=== PATIENT | female | born 1940 | race Caucasian/White ===

== ENCOUNTER → 2017-01-28 | Outpatient (CLI) | payer MEDICARE, OTHER ==
[~2017-01-28] MED LIST: ACHYD1T PO; CALC-758 PO; DCS100C PO; EST30C PV; ESTR0.62 PO; IBP800T PO; [UNRECOGNIZED DRUG - OTHER] OD
--- NOTE | 2017-01-28 19:24 | Diagnostic Imaging Report ---
EXAMINATION: DEXA scan. INDICATION: Osteopenia. TECHNIQUE: Bone mineral density estimated based on dual energy radiography over the lumbar spine and femoral necks, was performed. FINDINGS: The lumbar spine T-score is -1.6. This is the 0.5% decreased density measurements compared to 01/17/2015. T score over the left femoral neck is -1.1 and on the right is -0.6. The measurements in the femur in average are 4% higher than measurements from 2015. IMPRESSION: Osteopenia. Dictated by: Dictated on workstation # [id number]
--- NOTE | 2017-01-29 10:39 | Diagnostic Imaging Report ---
Bilateral screening mammogram. The current study was also evaluated with a Computer Aided Detection (CAD) system. INDICATION: Screening. No current complaints stated on the questionnaire. COMPARISON: 01/24/2016. FINDINGS: The breasts are composed of heterogeneously dense parenchyma which may decrease mammographic sensitivity. There are bilateral breast calcifications seen minimally increased from the prior exam with no focal adverse development or heterogeneous cluster. Allowing for technique and positional differences, no suspicious change is seen. IMPRESSION: Dense breasts with no definite change. ACR BI-RADS Category 2: Benign findings. Result letter will be mailed to the patient. Note: At least 10% of breast cancer is not imaged by mammography. Dictated by: Dictated on workstation # [id number]
== END ==
LOC: RAD 10:21
PROVIDERS: ATTEND Internal Medicine
DX: Z13.820 Encounter for screening for osteoporosis (principal); M85.89 Other specified disorders of bone density and structure, multiple sites; Z12.31 Encounter for screening mammogram for malignant neoplasm of breast
CPT/HCPCS: 77067; 77080

== ENCOUNTER 2017-03-08 12:14 | Outpatient (CLI) | payer MEDICARE, OTHER ==
[~2017-03-08] VITALS: Ht 170.2 cm; Wt 57.6 kg
[2017-03-08] MEDS ORDERED: BUPIVACAINE 0.25% 30 ML (SENSORCAINE) VIAL ONE (12:20)
[2017-03-08] MEDS ORDERED: TRIAMCINOLONE ACET (KENALOG-40) 40 MG/ML 1 ML VIAL ONE (12:20)
[2017-03-08 12:27] VITALS: BP 133/59
[2017-03-08 12:59] VITALS: BP 138/76
--- NOTE | 2017-03-08 14:32 | Pain Medicine-Procedure ---
Procedure Pre-Op/Post-Op Diagnosis Diagnosis: disc disorder with radiculopathy, lumbar Indications for Operation Low back pain Attending Surgeon Tyler Procedure Date of Service: Mar 08, 2017 Procedure: Lumbar Epidural Steroid Injection at the L5-S1 level under Fluoroscopic Guidance Procedure: Patient was identified in the holding area. After risks, benefits, and alternatives were discussed with the patient, informed consent was obtained. Patient was brought to the fluoroscopy suite and placed prone on the procedure room table. A time out was performed. Vital signs were monitored throughout the procedure. The patients low back was prepped and draped in the usual sterile fashion. The patients skin was anesthetized using 2% Lidocaine. A Tuohy needle was inserted and advanced to the L5-S1 epidural space under fluoroscopic guidance using the loss of resistance technique and intermittent projection of fluoroscopy. There was no paresthesia with needle placement. The needle position was confirmed in both the AP and lateral view. After negative aspiration 2ml of contrast was injected under live fluoroscopy which showed good spread of the contrast in the epidural space at the appropriate level, there was no intravascular or subarachnoid spread. Again, after negative aspiration for heme or CSF, 2 ml of 0.25% Bupivicaine, 2ml of preservative free normal saline, and 80mg of Kenalog was injected. The needle was removed and a sterile bandage was placed and the patient was transferred to the recovery area in stable condition. After a brief period of observation, patient was discharged to home with no new neurological deficits and no apparent complications. Complications None SUSY RAMÍREZ MD Mar 08, 2017 2:32 pm
== END 2017-03-08 13:00 | disposition home or self-care (01) ==
LOC: CARD 12:14
PROVIDERS: ATTEND Pain Medicine Pain Medicine
DX: M51.16 Intervertebral disc disorders with radiculopathy, lumbar region (principal); M47.816 Spondylosis without myelopathy or radiculopathy, lumbar region; M53.3 Sacrococcygeal disorders, not elsewhere classified
CPT/HCPCS: 62323

== ENCOUNTER → 2017-03-29 | Outpatient (CLI) | payer MEDICARE, OTHER ==
[~2017-03-29] VITALS: Ht 170.2 cm; Wt 57.6 kg
[~2017-03-29] MED LIST changes: +DENOSUMAB 60 MG/1 ML (PROLIA) SQ NR
[2017-03-29 13:55] VITALS: BP 119/74
== END ==
LOC: SDC 13:27
PROVIDERS: ATTEND Internal Medicine
DX: M81.0 Age-related osteoporosis without current pathological fracture (principal)
CPT/HCPCS: 96372

== ENCOUNTER 2017-07-28 11:34 | Outpatient (RCR) | payer MEDICARE, OTHER ==
[~2017-07-28 11:34] MED LIST changes: -DENOSUMAB 60 MG/1 ML (PROLIA) SQ NR
== END 2017-07-28 13:19 | disposition home or self-care (01) ==
PROVIDERS: ATTEND Internal Medicine
DX: M41.9 Scoliosis, unspecified (principal); R10.84 Generalized abdominal pain

== ENCOUNTER → 2017-10-07 | Outpatient (CLI) | payer MEDICARE, OTHER ==
[~2017-10-07] VITALS: Ht 170.2 cm; Wt 57.6 kg
[~2017-10-07] MED LIST changes: +DENOSUMAB 60 MG/1 ML (PROLIA) SQ ONE
[2017-10-07 14:43] VITALS: BP 137/71
== END ==
LOC: SDC 14:16
PROVIDERS: ATTEND Internal Medicine
DX: M81.0 Age-related osteoporosis without current pathological fracture (principal)
CPT/HCPCS: 96372

== ENCOUNTER → 2017-10-28 | Outpatient (CLI) | payer MEDICARE, OTHER ==
[~2017-10-28] MED LIST changes: -DENOSUMAB 60 MG/1 ML (PROLIA) SQ ONE
--- NOTE | 2017-10-28 19:36 | Diagnostic Imaging Report ---
PROCEDURE: MRI lumbar spine. TECHNIQUE: Multiplanar, multisequence MRI of the lumbar spine was performed without contrast. INDICATION: Chronic low back pain. Left sciatic pain. FINDINGS: There is scoliosis in the lumbar spine convex to the left centered around L3/4 level with a compensatory curve convex to the right side centered around T12/L1 level. The vertebral body heights are preserved. There is disc desiccation at all disc levels. There is heterogeneous marrow signal without suspicious focal lesion seen. Mild endplate edema around L5/S1 is noted. The L4 vertebral body demonstrates a 1.2 cm nodule with T2 hyperintensity and part T1 hyperintensity likely related to hemangioma. There is no compression fracture. There is mild disc height loss at lower lumbar spine disc levels, particularly involving the right side of the L3/4 and L2/3 levels. The cauda equina and conus medullaris appear grossly unremarkable. T12/L1: There is a diffuse disc bulge, asymmetric to the left side. There is mild facet hypertrophy. No central canal or lateral recess stenosis. The foramina appear patent. L1/2: There is a diffuse disc bulge, asymmetric to the left. There is mild facet hypertrophy. No central canal, lateral recess, or foraminal stenosis. L2/3: There is a diffuse disc bulge and moderate facet hypertrophy. There is no central canal stenosis. The lateral recess demonstrates jmbf-tp-cyisomob narrowing on the right and no significant narrowing on the left. The foramina demonstrate no significant stenosis. L3/4: There is a diffuse disc bulge and cpoi-ab-utkbzilo facet hypertrophy. No central canal stenosis. There is mild right lateral recess stenosis. The left lateral recess is patent. The foramina demonstrate mild stenosis on the right and no significant stenosis on the left. L4/5: There is a diffuse disc bulge and fhtjfysb-kh-qjyvtt facet hypertrophy bilaterally. No central canal stenosis. There is arot-ig-srthkhab stenosis of the right lateral recess and mild stenosis of the left lateral recess. The foramina demonstrate bmxp-pv-rvbnduqi stenosis only on the right side. L5/S1: There is a minimal disc bulge and tccb-ot-gkuepnjw facet hypertrophy, worse on the left side. No central canal or lateral recess stenosis. No foraminal stenosis on the right. There is mild foraminal stenosis on the left. IMPRESSION: Degenerative disc and facet changes. Scoliosis. No high-grade spinal canal stenosis seen. Dictated by: Dictated on workstation # [id number]
== END ==
LOC: RAD 12:48
PROVIDERS: ATTEND Physical Medicine & Rehabilitation Sports Medicine
DX: M51.36 Other intervertebral disc degeneration, lumbar region (principal); M89.38 Hypertrophy of bone, other site; M41.9 Scoliosis, unspecified
CPT/HCPCS: 72148

== ENCOUNTER → 2018-01-19 | Outpatient (CLI) | payer MEDICARE, OTHER ==
--- NOTE | 2018-01-19 14:51 | Diagnostic Imaging Report ---
PROCEDURE: MRI left joint lower extremity without contrast. TECHNIQUE: Multiplanar, multisequence non contrast-enhanced MRI of the pelvis with small lvyhv-bo-vomg sequences of the left hip was accomplished. INDICATION: Left-sided hip and low back pain. COMPARISON: CT abdomen and pelvis from 12/26/2012. FINDINGS: No acute fracture or dislocation is seen in the pelvis. No significant joint effusion is seen in the bilateral hips or sacroiliac joints. There are mild degenerative changes in the bilateral hip joints. Moderate degenerative changes are seen in the lumbar spine. The bone marrow is heterogeneous, but no aggressive lesions are seen. A sclerotic focus is seen in the left femoral head, likely a bone island. No soft tissue masses or fluid collections are seen. No focal intramuscular edema is seen. Mild increased T2 signal is seen lateral to the greater trochanters bilaterally, right greater than left, which can be seen with asymptomatic individuals. The bilateral iliopsoas tendons are intact. No increased fluid is seen in the iliopsoas bursae. The hamstring tendons and gluteal tendons appear intact. Small saoge-lw-copu images of the left hip demonstrate mild nonspecific bone marrow edema at the anterior femoral neck. There is mild irregularity at the superior acetabular labrum, likely degenerative. No paralabral cysts are seen. No free fluid is seen in the pelvis. No pelvic masses or lymphadenopathy is seen. There is pelvic floor relaxation. IMPRESSION: 1. Mild degenerative changes in bilateral hips with no acute osseous or soft tissue abnormality seen. The images and report will be mailed to [facility] in [place], [place]. Dictated by: Dictated on workstation # [id number]
== END ==
LOC: RAD 12:52
PROVIDERS: ATTEND Physical Medicine & Rehabilitation Sports Medicine
DX: M16.0 Bilateral primary osteoarthritis of hip (principal); M54.5 Low back pain
CPT/HCPCS: 73721

== ENCOUNTER → 2018-02-14 | Outpatient (CLI) | payer MEDICARE, OTHER ==
--- NOTE | 2018-02-15 19:11 | Diagnostic Imaging Report ---
INDICATION: Routine screening. Comparison is made with prior exam from 01/28/2017 and 01/24/2016. The current study was also evaluated with a Computer Aided Detection (CAD) system. FINDINGS: Moderate parenchymal density and heterogeneity is noted bilaterally, limiting the sensitivity of mammography. There are benign calcifications bilaterally. No mass or malignant-appearing microcalcifications are seen. The axillae are unremarkable. IMPRESSION: No mammographic features suspicious for malignancy are identified. ACR BI-RADS Category 2: Benign findings. Result letter will be mailed to the patient. Note: At least 10% of breast cancer is not imaged by mammography. Dictated by: Dictated on workstation # [id number]
== END ==
LOC: RAD 15:11
PROVIDERS: ATTEND Internal Medicine
DX: Z12.31 Encounter for screening mammogram for malignant neoplasm of breast (principal)
CPT/HCPCS: 77067

== ENCOUNTER → 2018-04-28 | Outpatient (CLI) | payer MEDICARE ==
[~2018-04-28] VITALS: Ht 170.2 cm; Wt 57.6 kg
[~2018-04-28] MED LIST changes: +DENOSUMAB 60 MG/1 ML (PROLIA) SQ ONE
[2018-04-28 12:57] VITALS: BP 123/63
== END ==
LOC: SDC 12:47
PROVIDERS: ATTEND Internal Medicine
DX: M81.0 Age-related osteoporosis without current pathological fracture (principal)
CPT/HCPCS: 96372

== ENCOUNTER → 2018-10-31 | Outpatient (CLI) | payer MEDICARE ==
[~2018-10-31] VITALS: Ht 170.2 cm; Wt 57.6 kg
[~2018-10-31] MED LIST changes: -DENOSUMAB 60 MG/1 ML (PROLIA) SQ ONE; +DENOSUMAB 60 MG/1 ML (PROLIA) SQ SCH
[2018-10-31 13:10] VITALS: BP 128/67
== END | disposition home or self-care (01) ==
LOC: SDC 13:02
PROVIDERS: ATTEND Internal Medicine
DX: M81.0 Age-related osteoporosis without current pathological fracture (principal)
CPT/HCPCS: 96372

== ENCOUNTER → 2019-04-11 | Outpatient (CLI) | payer MEDICARE ==
[~2019-04-11] MED LIST changes: -DENOSUMAB 60 MG/1 ML (PROLIA) SQ SCH
--- NOTE | 2019-04-11 12:57 | Diagnostic Imaging Report ---
INDICATION: Postmenopausal screening COMPARISON: 01/28/2017 FINDINGS: AP Spine L1-L4: [BMD (g/cm2): 0.975] [T-Score: -1.9] [Z-Score: 0.1] [BMD Previous: 1.003] [BMD % Change: -2.8] LT Hip Neck: [BMD (g/cm2): 0.832] [T-Score: -1.5] [Z-Score: 0.7] LT Hip Total: [BMD (g/cm2):0.864] [T-Score:-1.1] [Z-Score: 0.9] [BMD Previous: 0.870] [BMD % Change: -0.7] RT Hip Neck: [BMD (g/cm2):0.883] [T-Score:-1.1] [Z-Score:1.1] RT Hip Total: [BMD (g/cm2):0.911] [T-score:-0.8] [Z-Score:1.3] [BMD Previous:0.934] [BMD % Change:-2.5] *Indicates significant change from prior examination based on 95% confidence level. World Health Organization criteria for BMD interpretation classify patients as Normal (T-score at or above -1.0), Osteopenic (T-score between -1.0 and -2.5) or Osteoporotic (T-score at or below -2.5). LIMITATIONS AND MODIFICATION: None. FRACTURE RISK (FRAX SCORE): The ten year probability of (%): Major Osteoporotic Fracture: [10.8] Hip Fracture: [2.5] IMPRESSION: 1. Osteopenia (Low bone mass). 2. No significant change in bone mineral density since prior examination. 3. See below National Osteoporosis Foundation guidelines on when to potentially initiate pharmacologic therapy. Based on the National Osteoporosis Foundation Guidelines, pharmacologic treatment should be initiated in any of the following, unless clinical conditions suggest otherwise: * Any patient with prior fragility fracture of the hip or vertebrae. A spine fracture indicates 5X risk for subsequent spine fracture and 2X risk for subsequent hip fracture. * Osteoporosis (T-score <-2.5). * Postmenopausal women and men age 50 and older with low bone mass/osteopenia (T-score between -1.0 and -2.5) by DXA and 10-year major osteoporotic fracture greater than 20% or a 10-year probability of hip fracture greater than 3%. These fracture risks are supplied above in the FRAX score, if applicable. * Clinician judgement and/or patient preferences may indicate treatment for people with 10-year fracture probabilities above or below these levels. Dictated by: Dictated on workstation # [id number]
--- NOTE | 2019-04-11 14:29 | Diagnostic Imaging Report ---
INDICATION: Routine screening. COMPARISON: 02/14/2018 and 01/28/2017. TECHNIQUE: 2D and 3D bilateral screening mammography was performed with CAD. FINDINGS: Both breasts are heterogeneously dense, limiting the sensitivity of mammography. Benign calcifications are scattered throughout both breasts. No dominant mass or malignant appearing microcalcifications are seen. The axillae are unremarkable. IMPRESSION: No mammographic features suspicious for malignancy are identified. ACR BI-RADS Category 2: Benign findings. Result letter will be mailed to the patient. Note: At least 10% of breast cancer is not imaged by mammography. Dictated by: Dictated on workstation # [id number]
== END ==
LOC: RAD 09:51
PROVIDERS: ATTEND Internal Medicine
DX: Z12.31 Encounter for screening mammogram for malignant neoplasm of breast (principal); Z13.820 Encounter for screening for osteoporosis; M85.89 Other specified disorders of bone density and structure, multiple sites; Z78.0 Asymptomatic menopausal state
CPT/HCPCS: 77067; 77080

== ENCOUNTER 2019-05-30 10:10 | Outpatient (CLI) | payer MEDICARE ==
[~2019-05-30] VITALS: Ht 170.2 cm; Wt 57.6 kg
[2019-05-30] MEDS ORDERED: DENOSUMAB 60 MG/1 ML (PROLIA) SQ NR (10:18)
[2019-05-30 10:40] VITALS: BP 140/81
== END 2019-05-30 10:40 | disposition home or self-care (01) ==
LOC: SDC 10:10
PROVIDERS: ATTEND Internal Medicine
DX: M81.0 Age-related osteoporosis without current pathological fracture (principal)
CPT/HCPCS: 96372

== ENCOUNTER 2019-10-06 10:47 | Outpatient (CLI) | payer MEDICARE ==
[~2019-10-06] VITALS: Ht 170.2 cm; Wt 57.3 kg
[2019-10-06] MEDS ORDERED: ESTR0.5T PO (11:44)
[2019-10-06] MEDS ORDERED: LEVO88TA54 PO (11:44)
[2019-10-06] MEDS ORDERED: EST30C VG (11:44)
== END 2019-10-06 11:45 | disposition home or self-care (01) ==
LOC: PREOP 10:47
PROVIDERS: ATTEND Internal Medicine
DX: Z01.818 Encounter for other preprocedural examination (principal)

== ENCOUNTER 2019-10-10 07:00 | Day surgery (SDC) | payer MEDICARE ==
--- NOTE | 2019-10-06 14:02 | HISTORY AND PHYSICAL ---
DATE OF SERVICE: EGD HISTORY AND PHYSICAL HISTORY OF PRESENT ILLNESS: The patient is a 79-year-old white female, who presented to the office on 10/05/2019, noting a several month history of dysphagia to solids as well as some of her larger pills including calcium tablet. She has had a several week history of odynophagia, especially to fruits. She denies rare episodes of heartburn. She denies coughing, choking or sore throat. She denies any weight loss. She has no past history of peptic ulcer disease and has never undergone EGD evaluation, but has accomplished screening colonoscopy at least once in the past 10 years. PHYSICAL EXAMINATION: GENERAL: Reveals a thin white female who appears to be in no acute distress. VITAL SIGNS: Weight stable 126 pounds, blood pressure 118/60. Her weight is compared to four months ago. HEENT: Oral cavity reveals a Mallampati 1 pharyngeal configuration. No erythema is noted. NECK: Revealed no JVD, adenopathy or bruits. CHEST: Clear to auscultation. CARDIOVASCULAR: Reveals regular rate and rhythm without murmur, S3 or S4. ABDOMEN: Soft, supple without mass, organomegaly or tenderness. EXTREMITIES: Reveal no cyanosis, clubbing or edema. ASSESSMENT AND PLAN: Dysphagia with odynophagia. The patient as I recall has had one other EGD in the past at which time she had an esophageal ring with some erythema. She is on no acid blocking medication. She is set up for EGD evaluation this coming Wednesday to remain on mechanical soft diet with further recommendations pending EGD evaluation. Discussed the strong possibility of esophageal dilatation as well. Job ID: [id number] DocumentID: [id number] Dictated Date: 10/05/2019 16:32:02 Lubrication Worker Date: 10/05/2019 17:12:02 Dictated By: LU WADDELL MD
[2019-10-10] VITALS (11 sets, daily range): BP systolic 96–144; BP diastolic 52–69
[~2019-10-10] VITALS: Ht 170.2 cm; Wt 57.3 kg
[~2019-10-10 07:00] MED LIST changes: +EST30C VG; +ESTR0.5T PO; +LEVO88TA54 PO
[2019-10-10] MEDS ORDERED: D5 LR IV SOLUTION 1,000 ML IV ONE (07:11)
[2019-10-10] MEDS ORDERED: D5 LR IV SOLUTION 1,000 ML IV STA (07:14)
[2019-10-10] MEDS ORDERED: MIDAZOLAM 5 MG/5 ML (VERSED) VIAL IV PRN (07:15)
[2019-10-10] MEDS ORDERED: LIDOCAINE JELLY 2% 6 ML SYRINGE MM PRN (07:15)
[2019-10-10] MEDS ORDERED: fentaNYL INJECTION 100 MCG/2 ML AMP IVP ONE (07:15)
[2019-10-10] MEDS ORDERED: HURRICAINE EXT TUBE (BENZOCAINE) XX PRN (07:15)
--- NOTE | 2019-10-10 07:30 | NUR ---
Initial visit with the pt and her , Yosi. 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 Joint visit with Jones Alvarado, [employer]aving [employer] of [facility] for emotional and spiritual support through active listening and calming presence.
--- NOTE | 2019-10-10 07:34 | Pre-Op Note & Conscious Sedat ---
Pre-Operative Progress Note H&P Reviewed The H&P was reviewed, patient examined and no changes noted. Date H&P Reviewed: Oct 10, 2019 Time H&P Reviewed: 07:20 Conscious Sedation Pre-Proced ASA Score 2 For ASA 3 and 4: Consider anesthesia and medical clearance. Also, for patients with a history of failed moderate sedation consider anesthesia. Airway Lungs Heart ASA score ASA 1: a normal healthy patient ASA 2: a patient with a mild systemic disease (mid diabetes, controlled hypertension, obesity ASA 3: a patient with a severe systemic disease that limits activity (angina, COPD, prior Myocardial infarction) ASA 4: a patient with an incapacitating disease that is a constant threat to life (CHF, renal failure) ASA 5: a moribund patient not expected to survive 24 hrs. (ruptured aneurysm) ASA 6: a declared brain- patient whose organs are being harvested. For emergent operations, add the letter E after the classification Mallampati Classification Grade 1 Sedation Plan Analgesia, Amnesia, Plan communicated to team members, Discussed options with patient/fam, Discussed risks with patient/fam The patient is an appropriate candidate to undergo the planned procedure, sedation, and anesthesia. The patient immediately re-assessed prior to indication. LU WADDELL MD Oct 10, 2019 07:34 POS
[2019-10-10] MEDS ORDERED: HURRICAINE EXT TUBE (BENZOCAINE) ONE (07:38)
[2019-10-10] MEDS ORDERED: LIDOCAINE JELLY 2% 6 ML SYRINGE ONE (07:39)
[2019-10-10] MEDS ORDERED: fentaNYL INJECTION 100 MCG/2 ML AMP ONE (07:39)
[2019-10-10] MEDS ORDERED: MIDAZOLAM 5 MG/5 ML (VERSED) VIAL ONE (07:40)
--- NOTE | 2019-10-10 12:23 | OPERATIVE REPORT ---
DATE OF SERVICE: 10/10/2019 ESOPHAGOGASTRODUODENOSCOPY SUMMARY INDICATION FOR THE PROCEDURE: Dysphagia without odynophagia. DESCRIPTION OF PROCEDURE: The patient was placed in the left lateral decubitus position. The endoscope was inserted into the oral cavity and under direct visualization, esophagus was intubated. The endoscope was passed down the esophagus through the stomach and second portion of the duodenum. Careful inspection was made as the endoscope was withdrawn. The patient tolerated the procedure well. FINDINGS: The posterior pharynx, true and false vocal cords and arytenoid aperture were unremarkable with no evidence for erythema or exudate. The proximal and mid esophagus were unremarkable. There is a moderate size hiatal hernia present. The Z line was proximally placed at 34 cm. There is some mild erythema noted at the Z line and there appeared to be a ring of tissue infection in the open position. Despite this, there was no evidence to suggest Andersen's change or erosive esophagitis. The lower esophageal sphincter was widely patent with at least 3 cm nonstretched diameter. The cardia, fundus and antrum of the stomach were unremarkable with no evidence for gastritis or peptic ulcer disease. The pylorus, pyloric channel and duodenal bulb and second portion of duodenum were unremarkable as well. Photographic documentation was obtained. A careful inspection was made as the endoscope was withdrawn. The patient did have evidence for hiatal hernia, moderate in size measuring roughly 4 cm in diameter with only a small amount of the cardia being present above the level of the diaphragm. There was no evidence for erosive esophagitis. While the lower esophageal sphincter did have the appearance of a ring, there was no evidence for stenosis or ulceration. A biopsy was obtained and submitted for histopathology. No other abnormalities noted in today's study. ASSESSMENT AND PLAN: Moderate sized hiatal hernia was present without evidence for erosive esophagitis. The patient had noted improvement in symptoms and so at this point just recommending p.r.n. antacid therapy, importance of careful attention to mastication and drinking enough fluids with her food, especially with meats and breads was discussed. Job ID: [id number] DocumentID: [id number] Dictated Date: 10/10/2019 08:48:22 Mobile Product Manager Date: 10/10/2019 12:23:15 Dictated By: LU WADDELL MD [facility]PITALShayne
== END 2019-10-10 08:55 | disposition home or self-care (01) ==
LOC: ENDO 07:00
PROVIDERS: ATTEND Internal Medicine
DX: R13.10 Dysphagia, unspecified (principal); K44.9 Diaphragmatic hernia without obstruction or gangrene; Z88.1 Allergy status to other antibiotic agents
CPT/HCPCS: 88305

== ENCOUNTER → 2019-12-05 | Outpatient (CLI) | payer MEDICARE ==
[~2019-12-05] MED LIST changes: +DENOSUMAB 60 MG/1 ML (PROLIA) SQ ONE
[2019-12-05 14:08] VITALS: BP 132/60
== END ==
LOC: SDC 14:04
PROVIDERS: ATTEND Internal Medicine
DX: M81.0 Age-related osteoporosis without current pathological fracture (principal)
CPT/HCPCS: 96372

== ENCOUNTER → 2020-05-14 | Outpatient (CLI) | payer MEDICARE ==
[~2020-05-14] MED LIST changes: -DENOSUMAB 60 MG/1 ML (PROLIA) SQ ONE
--- NOTE | 2020-05-14 17:38 | Diagnostic Imaging Report ---
INDICATION: Routine screening. COMPARISON is made with prior mammogram 04/11/2019, and 02/14/2018. 2-D and 3-D bilateral screening mammography was performed with CAD. FINDINGS: Both breasts are heterogeneously dense, limiting the sensitivity of mammography. There are scattered benign calcifications in both breasts. No mass or malignant appearing microcalcifications are seen. Axillae are unremarkable. IMPRESSION: BI-RADS Category 2. No mammographic features suspicious for malignancy are identified. ACR BI-RADS Category 2: Benign findings. Result letter will be mailed to the patient. Note: At least 10% of breast cancer is not imaged by mammography. Dictated by: Dictated on workstation # [id number]
== END ==
LOC: RAD 14:16
PROVIDERS: ATTEND Internal Medicine
DX: Z12.31 Encounter for screening mammogram for malignant neoplasm of breast (principal)
CPT/HCPCS: 77063; 77067

== ENCOUNTER → 2020-06-18 | Outpatient (CLI) | payer MEDICARE ==
[~2020-06-18] MED LIST changes: +DENOSUMAB 60 MG/1 ML (PROLIA) SQ SCH
[2020-06-18 14:15] VITALS: BP 111/67
== END ==
LOC: SDC 13:57
PROVIDERS: ATTEND Internal Medicine
DX: M81.0 Age-related osteoporosis without current pathological fracture (principal)
CPT/HCPCS: 96372

== ENCOUNTER → 2020-12-23 | Outpatient (CLI) | payer MEDICARE ==
[~2020-12-23] VITALS: Ht 170.2 cm; Wt 56.0 kg
[~2020-12-23] MED LIST changes: +DENOSUMAB 60 MG/1 ML (PROLIA) SQ NR; -DENOSUMAB 60 MG/1 ML (PROLIA) SQ SCH
[2020-12-23 13:40] VITALS: BP 116/63
== END ==
LOC: SDC 13:06
PROVIDERS: ATTEND Internal Medicine
DX: M81.0 Age-related osteoporosis without current pathological fracture (principal)
CPT/HCPCS: 96372

== ENCOUNTER → 2021-06-10 | Outpatient (CLI) | payer MEDICARE ==
[~2021-06-10] MED LIST changes: -DENOSUMAB 60 MG/1 ML (PROLIA) SQ NR
--- NOTE | 2021-06-10 11:55 | Diagnostic Imaging Report ---
INDICATION: Postmenopausal state COMPARISON: 04/11/2019 FINDINGS: AP Spine L1-L4: [BMD (g/cm2): 0.909] [T-Score: -2.4] [Z-Score: -0.2] [BMD Previous: 0.975] [BMD % Change: -6.8] LT Hip Neck: [BMD (g/cm2): 0.826] [T-Score: -1.5] [Z-Score: 0.9] LT Hip Total: [BMD (g/cm2):0.920] [T-Score:-0.7] [Z-Score: 1.6] [BMD Previous: 0.864] [BMD % Change: 6.5] RT Hip Neck: [BMD (g/cm2):.941] [T-Score:-0.7] [Z-Score:1.7] RT Hip Total: [BMD (g/cm2):0.952] [T-score:-0.4] [Z-Score:1.8] [BMD Previous:0.911] [BMD % Change:4.5] *Indicates significant change from prior examination based on 95% confidence level. World Health Organization criteria for BMD interpretation classify patients as Normal (T-score at or above -1.0), Osteopenic (T-score between -1.0 and -2.5) or Osteoporotic (T-score at or below -2.5). LIMITATIONS AND MODIFICATION: Significant apex left curvature of the lumbar spine with associated degenerative changes. FRACTURE RISK (FRAX SCORE): The ten year probability of (%): Major Osteoporotic Fracture: [10.9] Hip Fracture: [2.8] IMPRESSION: 1. Osteopenia (Low bone mass). 2. No significant change in bone mineral density since prior examination. 3. See below National Osteoporosis Foundation guidelines on when to potentially initiate pharmacologic therapy. Based on the National Osteoporosis Foundation Guidelines, pharmacologic treatment should be initiated in any of the following, unless clinical conditions suggest otherwise: * Any patient with prior fragility fracture of the hip or vertebrae. A spine fracture indicates 5X risk for subsequent spine fracture and 2X risk for subsequent hip fracture. * Osteoporosis (T-score <-2.5). * Postmenopausal women and men age 50 and older with low bone mass/osteopenia (T-score between -1.0 and -2.5) by DXA and 10-year major osteoporotic fracture greater than 20% or a 10-year probability of hip fracture greater than 3%. These fracture risks are supplied above in the FRAX score, if applicable. * Clinician judgement and/or patient preferences may indicate treatment for people with 10-year fracture probabilities above or below these levels. Dictated by: Dictated on workstation # [id number]
--- NOTE | 2021-06-10 12:24 | Diagnostic Imaging Report ---
INDICATION: Routine screening. COMPARISON: 05/14/2020 and 04/11/2019. TECHNIQUE: 2D and 3D bilateral screening mammography was performed with CAD. FINDINGS: Both breasts are heterogeneously dense, limiting the sensitivity of mammography. There are benign calcifications bilaterally. No mass or malignant appearing microcalcifications are seen. The axillae are unremarkable. IMPRESSION: No mammographic features suspicious for malignancy are identified. ACR BI-RADS Category 2: Benign findings. Result letter will be mailed to the patient. Note: At least 10% of breast cancer is not imaged by mammography. Dictated by: Dictated on workstation # [id number]
== END ==
LOC: RAD 10:00
PROVIDERS: ATTEND Internal Medicine
DX: Z12.31 Encounter for screening mammogram for malignant neoplasm of breast (principal); Z13.820 Encounter for screening for osteoporosis; M85.80 Other specified disorders of bone density and structure, unspecified site; Z78.0 Asymptomatic menopausal state
CPT/HCPCS: 77063; 77067; 77080

== ENCOUNTER → 2021-07-22 | Outpatient (CLI) | payer MEDICARE ==
[~2021-07-22] MED LIST changes: +DENOSUMAB 60 MG/1 ML (PROLIA) SQ SCH
[2021-07-22 13:30] VITALS: BP 131/75
== END ==
LOC: SDC 13:28
PROVIDERS: ATTEND Internal Medicine
DX: M81.0 Age-related osteoporosis without current pathological fracture (principal)
CPT/HCPCS: 96372

== ENCOUNTER → 2022-01-26 | Outpatient (CLI) | payer MEDICARE ==
[2022-01-26 13:30] VITALS: BP 121/57
== END ==
LOC: SDC 13:24
PROVIDERS: ATTEND Internal Medicine
DX: M81.0 Age-related osteoporosis without current pathological fracture (principal)
CPT/HCPCS: 96372

== ENCOUNTER → 2022-06-11 | Outpatient (CLI) | payer MEDICARE ==
[~2022-06-11] MED LIST changes: -DENOSUMAB 60 MG/1 ML (PROLIA) SQ SCH
--- NOTE | 2022-06-12 08:24 | Diagnostic Imaging Report ---
INDICATION: Routine screening. Comparison is made with prior mammogram 06/10/2020 and 05/14/2020. 2-D and 3-D bilateral screening mammography was performed with CAD. Both breasts are heterogeneously dense, limiting the sensitivity of mammography. Scattered benign calcifications again noted. The overall parenchymal pattern is stable. No mass or malignant-appearing microcalcifications are seen. Axillae are unremarkable. IMPRESSION: No mammographic features suspicious for malignancy are identified. ACR BI-RADS Category 2: Benign findings. Result letter will be mailed to the patient. Note: At least 10% of breast cancer is not imaged by mammography. BI-RADS Category 2 Dictated by: Dictated on workstation # [id number]
== END ==
LOC: RAD 15:15
PROVIDERS: ATTEND Nurse Practitioner Family
DX: Z12.31 Encounter for screening mammogram for malignant neoplasm of breast (principal)
CPT/HCPCS: 77063; 77067

== ENCOUNTER → 2022-08-04 | Outpatient (CLI) | payer MEDICARE ==
[~2022-08-04] MED LIST changes: +DENOSUMAB 60 MG/1 ML (PROLIA) SQ SCH
[2022-08-04 10:25] VITALS: BP 128/69
== END ==
LOC: SDC 09:43
PROVIDERS: ATTEND Internal Medicine
DX: M81.0 Age-related osteoporosis without current pathological fracture (principal)
CPT/HCPCS: 96372

== ENCOUNTER 2023-02-02 13:17 | Outpatient (CLI) | payer MEDICARE ==
[~2023-02-02] VITALS: Ht 170.2 cm; Wt 58.8 kg
[~2023-02-02 13:17] MED LIST changes: -DENOSUMAB 60 MG/1 ML (PROLIA) SQ SCH
[2023-02-02] MEDS ORDERED: DENOSUMAB 60 MG/1 ML (PROLIA) SQ SCH (13:28)
[2023-02-02 13:48] VITALS: BP 121/57
== END 2023-02-02 13:48 | disposition home or self-care (01) ==
LOC: SDC 13:17
PROVIDERS: ATTEND Internal Medicine
DX: M81.0 Age-related osteoporosis without current pathological fracture (principal)
CPT/HCPCS: 96372

== ENCOUNTER → 2023-06-22 | Outpatient (CLI) | payer MEDICARE ==
--- NOTE | 2023-06-22 15:22 | Diagnostic Imaging Report ---
EXAMINATION: 3D bilateral screening mammogram with CAD. INDICATION: Screening. COMPARISON: This study was compared to the prior exams of 06/11/2022 and 06/10/2021. PERSONAL HISTORY: At this time, there are no current complaints. FINDINGS: The fibroglandular tissue in both breasts is heterogeneously dense. This does limit the sensitivity of this exam. When compared to the previous study there does not appear to have been any significant change. There is no primary or secondary sign of malignancy noted. IMPRESSION: There is no evidence for malignancy. ACR BI-RADS Category 1: Negative. Result letter will be mailed to the patient. Note: At least 10% of breast cancer is not imaged by mammography. Dictated by: Dictated on workstation # [id number]
--- NOTE | 2023-06-22 16:28 | Diagnostic Imaging Report ---
INDICATION: Postmenopausal state COMPARISON: 06/10/2021 FINDINGS: AP Spine L1-L4: [BMD (g/cm2): 0.946] [T-Score: -2.1] [Z-Score: 0.1] [BMD Previous: 0.909] [BMD % Change: 4.1*] LT Hip Neck: [BMD (g/cm2): 0.869] [T-Score: -1.2] [Z-Score: 1.2] LT Hip Total: [BMD (g/cm2):0.912] [T-Score:-0.8] [Z-Score: 1.6] [BMD Previous: 0.920] [BMD % Change: -0.9] RT Hip Neck: [BMD (g/cm2):0.938] [T-Score:-0.7] [Z-Score:1.7] RT Hip Total: [BMD (g/cm2):0.917] [T-score:-0.7] [Z-Score:1.6] [BMD Previous:0.952] [BMD % Change:-3.7*] *Indicates significant change from prior examination based on 95% confidence level. World Health Organization criteria for BMD interpretation classify patients as Normal (T-score at or above -1.0), Osteopenic (T-score between -1.0 and -2.5) or Osteoporotic (T-score at or below -2.5). LIMITATIONS AND MODIFICATION: None. FRACTURE RISK (FRAX SCORE): The ten year probability of (%): Major Osteoporotic Fracture: [9.9] Hip Fracture: [2.5] IMPRESSION: 1. Osteopenia (Low bone mass). 2. Bone mineral density within the total right hip has significantly decreased since the prior examination. Bone mineral density within the lumbar spine has significantly increased from prior examination, though some this may be artifactual secondary to degenerative hypertrophic changes. 3. See below National Osteopor[employer] Foundation guidelines on when to potentially initiate pharmacologic therapy. Based on the National Osteoporosis [employer] Guidelines, pharmacologic treatment should be initiated in any of the following, unless clinical conditions suggest otherwise: * Any patient with prior fragility fracture of the hip or vertebrae. A spine fracture indicates 5X risk for subsequent spine fracture and 2X risk for subsequent hip fracture. * Osteoporosis (T-score <-2.5). * Postmenopausal women and men age 50 and older with low bone mass/osteopenia (T-score between -1.0 and -2.5) by DXA and 10-year major osteoporotic fracture greater than 20% or a 10-year probability of hip fracture greater than 3%. These fracture risks are supplied above in the FRAX score, if applicable. * Clinician judgement and/or patient preferences may indicate treatment for people with 10-year fracture probabilities above or below these levels. Dictated by: Dictated on workstation # [id number]
== END ==
LOC: RAD 14:15
PROVIDERS: ATTEND Internal Medicine
DX: Z12.31 Encounter for screening mammogram for malignant neoplasm of breast (principal); M85.89 Other specified disorders of bone density and structure, multiple sites; Z78.0 Asymptomatic menopausal state
CPT/HCPCS: 77063; 77067; 77080

== ENCOUNTER 2023-08-11 12:49 | Outpatient (CLI) | payer MEDICARE ==
[~2023-08-11] VITALS: Ht 170 cm; Wt 58.8 kg
[2023-08-11 13:00] VITALS: BP 122/71
[2023-08-11] MEDS ORDERED: DENOSUMAB 60 MG/1 ML (PROLIA) SQ ONE (13:15)
== END 2023-08-11 13:25 | disposition home or self-care (01) ==
LOC: SDC 12:49
PROVIDERS: ATTEND Internal Medicine
DX: M81.0 Age-related osteoporosis without current pathological fracture (principal)
CPT/HCPCS: 96372